=== PATIENT | male | born 1995 | race Caucasian/White ===

== ENCOUNTER 2017-04-17 01:55 | Emergency (ER) | payer BC ==
[~2017-04-17] VITALS: Ht 177.8 cm; Wt 83.9 kg
--- NOTE | 2017-04-17 02:10 | NUR ---
Pt ambulatory w/ steady gait to rm c/o midlower abd pain, no N/V/D, report feels like gas x today. AOX4, afebrile w/ resp even & unlabored, mild discomfort noted. pt in gown, on continuous monitoring. Dr. Ayon at bedside for further eval.
[2017-04-17] MEDS ORDERED: SIMETHICONE 80 MG TAB.CHEW ONE (02:17)
--- NOTE | 2017-04-17 02:18 | NUR ---
XR KUB at bedside.
[2017-04-17] MEDS ORDERED: SIMETHICONE 80 MG TAB.CHEW PO ONE ×2 (02:30)
[2017-04-17] MEDS ORDERED: DICYCLOMINE HCL INJ 20 MG/2 ML AMPUL IM ONE ×2 (02:56→03:00)
--- NOTE | 2017-04-17 03:04 | NUR ---
pt medicated as ordered for continued lower abd pain.
[2017-04-17] MEDS ORDERED: MORPHINE SULFATE INJ 2 MG/ML DISP.SYRIN ONE ×2 (03:29→03:50)
[2017-04-17] MEDS: MORPHINE SULFATE INJ 2 MG/ML DISP.SYRIN IM ONE ×2 (03:49→03:58)
--- NOTE | 2017-04-17 03:49 | NUR ---
pt refusing morphine, states he wants some medication that's not as strong and won't make him more constipated, asking to have an enema or stool softener. Dr. Ayon notified, at bedside talking w/ pt.
--- NOTE | 2017-04-17 03:58 | NUR ---
Pt now agrees to take morphine. Medicated as ordered.
--- NOTE | 2017-04-17 04:00 | NUR ---
Patient discharged to home in stable condition. Written and verbal after care instructions given. Instructed not to drive while on pain medication. Patient father at bedside to drive patient home. Patient verbalizes understanding of instruction.
[2017-04-17 04:01] VITALS: BP 143/85
== END 2017-04-17 04:01 | disposition home or self-care (01) ==
LOC: ER 01:58
DX: R14.1 Gas pain (principal)
CPT/HCPCS: 74000-TC; A4606; J0500; J2270; Z7610

== ENCOUNTER 2017-06-29 16:37 | Emergency (ER) | payer BC ==
[~2017-06-29] VITALS: Ht 175.3 cm; Wt 83.9 kg
[2017-06-29 16:37] VITALS: BP 126/61
== END 2017-06-29 17:00 | disposition home or self-care (01) ==
LOC: ER 16:38
DX: L03.113 Cellulitis of right upper limb (principal)
CPT/HCPCS: 99283; A4606; Z7610